=== PATIENT | female | born 1965 | race Caucasian/White ===

== ENCOUNTER → 2020-04-05 09:00 | Outpatient (CLI) | payer MEDICARE, MEDICAID, SELFPAY ==
[2020-04-05 09:47] LABS: Chloride 106 mmol/L (98-107); Potassium 4.5 mmoL/L (3.5-5.1); Sodium 140 mmol/L (136-145)
[2020-04-05 09:49] LABS: Alanine Aminotransferase 27 U/L (12-78); Aspartate Amino Transferase 34 U/L (14-36); Blood Urea Nitrogen 20 mg/dl (7-17); Estimated Glomerular Filt Rate 74 ml/min (>60); GFR (African American) 90 ML/MIN (>60)
[2020-04-05 09:50] LABS: Albumin Level 4.1 g/dl (3.5-5.0); Albumin/Globulin Ratio 1.1 (1.1-1.8); Alkaline Phosphatase 143 U/L (38-126); Anion Gap 9.5 mEq/L (5-15); Bilirubin,Total 0.8 mg/dl (0.2-1.3); Calcium 9.4 mg/dl (8.4-10.2); Carbon Dioxide 29 mmol/L (22.0-30.0); Cholesterol 175 mg/dl (140-200); Globulin 3.7 g/dL (1.3-3.2); Glucose 121 mg/dl (74-100); Total Protein,Serum 7.8 g/dl (6.3-8.2); Triglycerides 72 mg/dl (30-150); VLDL Cholesterol 14 mg/dL (0-40)
[2020-04-05 10:01] LABS: Direct LDL Cholesterol 87.45 mg/dL (100-129)
[2020-04-05 10:04] LABS: Basophils % 0.7 % (0.1-2.0); Eosinophils % 0.8 % (0.1-12.0); Hematocrit 54.7 % (37.0-47.0); Hemoglobin 17.6 g/dL (12.2-16.2); Lymphocytes # 1.9 K/mm3 (0.7-4.5); Lymphocytes % 35.3 % (10-50); Mean Corpuscular HGB Conc 32.2 g/dL (31.8-35.4); Mean Corpuscular Hemoglobin 30.2 pg (27.0-31.2); Mean Corpuscular Volume 93.8 fl (81-99); Mean Platelet Volume 8.6 fl (7.4-10.4); Monocytes # 0.4 K/mm3 (0.1-1.0); Monocytes % 6.5 % (1.7-9.3); Neutrophils # 3.1 K/mm3 (1.8-7.8); Neutrophils % 56.8 % (37.0-80.0); Platelet Count 211 K/mm3 (142-424); Red Blood Count 5.84 M/mm3 (4.20-5.40); Red Cell Distribution Width 13.4 % (11.5-17.5); White Blood Count 5.4 K/mm3 (4.8-10.8)
[2020-04-05 10:07] LABS: T4 (Thyroxine) 8.5 ug/dl (5.53-11.0)
[2020-04-05 20:14] LABS: Chol/HDL Ratio 3.1 (1-3.5); HDL Cholesterol 57 mg/dl (40-60)
== END ==
PROVIDERS: Visit Provider Nurse Practitioner Family
DX: R53.83 Other fatigue (principal); Z76.89 Persons encountering health services in other specified circumstances; E66.09 Other obesity due to excess calories; Z68.38 Body mass index [BMI] 38.0-38.9, adult; R73.03 Prediabetes
CPT/HCPCS: 36415; 80053; 80061; 84436; 84443; 85025

== ENCOUNTER → 2020-04-17 08:28 | Outpatient (CLI) | payer MEDICARE, MEDICAID, SELFPAY ==
--- NOTE | 2020-04-17 08:36 | XR_ITS ---
PROCEDURE: XR CHEST 2V CLINICAL HISTORY: elevated alk phos COMPARISON: No exams were available for comparison FINDINGS: This is a satisfactory inspiration. 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 There are sternal wire sutures. Cardiac size is borderline. There is partial obscuration of the left hilum and upper left heart border likely due to post surgical scarring. There is no definite acute infiltrate seen. There is no pleural fluid. IMPRESSION: No acute findings. Dictated by: Dr. Isidoro Lawton MD 04/17/2020 09:11 Dr. Isidoro Lawton MD in [place] 04/17/2020 09:11
[2020-04-17 10:30] LABS: Hemoglobin A1C 6.3 % (4.0-6.0)
== END ==
PROVIDERS: Visit Provider Nurse Practitioner Family
DX: R74.8 Abnormal levels of other serum enzymes (principal); R73.03 Prediabetes
CPT/HCPCS: 36415; 71046; 83036